=== PATIENT | female | born 1985 | race Caucasian/White ===

== ENCOUNTER 2017-08-12 07:21 | Day surgery (SDC) | payer OTHER ==
--- NOTE | 2017-08-11 07:29 | PREOPHP ---
DATE OF ADMISSION: 08/12/2017 The patient is coming for surgery on 08/12/2017 for a surgical procedure. HISTORY OF PRESENT ILLNESS: This is a [id number] female 3, para 3 patient with 3 vaginal deliveries and with an IUD and is coming into the office with a cyst about 3 cm big and very p ainful in the perineal area. This cyst that needs to be excised and it is too deep to do this in the office. This patient also has a Mirena IUD inserted that is working well. PAST MEDICAL HISTORY: . No other problems. . REVIEW OF SYSTEMS: Noncontributory. FAMILY HISTORY: Unremarkable. SOCIAL HISTORY: She has no history of drugs, smoking, drinking. ALLERGIES: SHE HAS NO ALLERGIES. PHYSICAL EXAMINATION: VITAL SIGNS: She is 5 feet 7 and she weighs 185, blood pressure is 110/60, pulse is 80, respiration s 16. HEAD AND NECK: Normal. CHEST: Clear. HEART: Normal sinus rhythm. LUNGS: Clear. BREASTS: Soft, nontender, no masses. ABDOMEN: Soft, nontender, no masses. GENITALIA: With a cyst that is about 3 cm in the perineal area. Uterus retroverted, flexed with ea rly fibroid. Adnexa is negative. EXTREMITIES: Normal with normal pulses and no edema. DIAGNOSES: Perineal cyst. PLAN: She is undergoing an excision of perineal cyst. She has been advised of the possible risks a nd possible complications of the procedure with her alternatives and options. Written information w as provided. She had no more questions and agreed to go ahead with the procedure on 08/12/2017. Dictated By: COSMO FOWLER/YOLIS Conf#: [id number] DID#: [id number]
[2017-08-12] VITALS (13 sets, daily range): BP systolic 94–120; BP diastolic 59–74; PULSE 64–86; RESP 15–32; Ht 167.6 cm; Wt 85.4 kg
[~2017-08-12] VITALS: Ht 167.6 cm; Wt 85.4 kg
[~2017-08-12 07:21] MED LIST: LACTATED RINGER'S 1,000 ML IV* SCH
[2017-08-12] MEDS ORDERED: LIDOCAINE 1%/EPI 30 ML INJ ONE (09:07)
[2017-08-12] MEDS ORDERED: MIDAZOLAM 1 MG/ML 2 ML INJ ONE (09:51)
[2017-08-12] MEDS ORDERED: FENTAnyl 50 MCG/ML VIAL ONE ×2 (09:51→10:20)
[2017-08-12] MEDS ORDERED: LIDOCAINE 2% (SDV) 5 ML INJ ONE (11:10)
[2017-08-12] MEDS ORDERED: PROPOFOL 20 ML ONE (11:10)
[2017-08-12] MEDS ORDERED: CEFAZOLIN 1 GM INJ ONE (11:11)
[2017-08-12] MEDS ORDERED: CLINDAMYCIN 900 MG/D5W (PMX) 50 ML IVPB ONE (11:11)
[2017-08-12] MEDS ORDERED: ONDANSETRON 4 MG INJ ONE (11:11)
--- NOTE | 2017-08-12 11:12 | PD.PPDC ---
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
--- NOTE | 2017-08-12 11:14 | SIPON ---
Date/Time of Note Date/Time of Note DATE: 08/12/17 TIME: 11:13 Operative Report Preoperative Diagnosis Deep large perineal cyst Postoperative Diagnosis Same Operation/Procedure Performed Perineal cystectomy Surgeon see signature line optical assistant None Anesthesia: general Estimated blood loss: 0 - 10 ml's Transfusion Required none Specimen Perineal tissue Grafts/Implants none Complications none COSMO LOMAS MD Aug 12, 2017 11:14
--- NOTE | 2017-08-12 12:31 | OPR ---
DATE OF OPERATION: 08/12/2017 PROCEDURE: Perineal cystectomy. PREOPERATIVE DIAGNOSIS: Large, deep perineal cyst. POSTOPERATIVE DIAGNOSIS: Large, deep perineal cyst. SURGEON: Cosmo Kinney MD ANESTHESIOLOGIST: Dr. Rooney with general. COMPLICATIONS: None. PROCEDURE: The patient was given general anesthesia, placed in the lithotomy position. The perine al and vaginal area were prepped and draped and the catheterization to the bladder was done for 400 mL. The perineal cyst was felt deep in the perineal area that was bigger before surgery. The incis ion was made on the perineal area of about 5 cm in length vertically and the fascia was reached thro ugh the dissection and the excision of the cyst was done in pieces due to the fact that apparently t his is an inclusion cyst. When we were clearing the area, the cyst ruptured with a dark material an d all the tissue around it was excised and deep layer to the levator ani muscles were sutured back t o normal with 2-0 Vicryl sutures deep in the area in 3 layers and the skin was sutured with subcutic ular 2-0 Monocryl. Dermabond was also applied and Xylocaine and epinephrine was injected in area. The patient tolerated the procedure well and left the OR awake and stable. Sponge counts and instru ment counts were correct. Intravenous antibiotics were given for prophylaxis. Blood loss was minim al. The urine was clear at the end of the procedure. Dictated By: COSMO FOWLER/YOLIS Conf#: [id number] DID#: [id number]
[2017-08-12] MEDS ORDERED: OXYCODONE/ACETAMINOPHEN (5/325) TAB PO ONE (13:30)
[2017-08-12] MEDS ORDERED: KETOROLAC 30 MG INJ IV STA (15:21)
== END 2017-08-12 16:05 | disposition home or self-care (01) ==
LOC: SDS 07:21
PROVIDERS: ATTEND Obstetrics & Gynecology
DX: L02.215 Cutaneous abscess of perineum (principal); E66.9 Obesity, unspecified
CPT/HCPCS: 11422; 12041; 84703; 88304; J0690; J1885; J2250; J2405; J3010; Z7512; Z7610